=== PATIENT | male | born 1930 | race Two or more races ===

== ENCOUNTER 2019-06-11 12:26 | Emergency (ER) | payer MEDICARE, MEDICAID ==
[~2019-06-11] VITALS: Ht 152.4 cm; Wt 78.9 kg
[2019-06-11 13:00] LABS: Urine Bacteria NONE SEEN /hpf (None Seen); Urine Blood Negative /uL (Negative); Urine Specific Gravity 1.008 (1.001-1.035); Urine WBC 1 /hpf (0 - 3)
[2019-06-11 14:28] LABS: Basophils # (auto) 0.1 uL; Eosinophils # (auto) 0.1 uL; Eosinophils % (auto) 1.1 % (0.0-7.0); Hematocrit 41.8 % (41.0-53.0); Lymphocytes # (auto) 1.1 uL; Lymphocytes % (auto) 18.2 % (10.0-50.0); Mean Corpuscular Hemoglobin 32.1 pg (28.0-32.0); Mean Corpuscular Hgb Conc. 33.4 g/dL (32.0-36.0); Monocytes # (auto) 0.5 uL; Monocytes % (auto) 8.5 % (0.0-12.0); Neutrophils # (auto) 4.5 uL; Neutrophils % (auto) 71.2 % (37.0-80.0); Platelet Count (auto) 177 10^3/uL (140-450); Red Blood Cells 4.36 10^6/uL (4.5-5.90); Red Cell Distribution Width 14.4 % (11.8-14.3); White Blood Cell 6.3 10^3/uL (4.4-10.8)
[2019-06-11 14:44] LABS: Alanine Aminotransferase 22 U/L (16-61); Albumin 3.6 g/dL (3.4-5.0); Anion Gap 7 (5-15); Aspartate Aminotransferase 19 U/L (15-37); BUN/Creatinine Ratio 13.7; Blood Urea Nitrogen 14 mg/dL (7-18); Calcium 8.8 mg/dL (8.5-10.1); Carbon Dioxide 27 mmol/L (21-32); Chloride 104 mmol/L (98-107); GFR African American 89 mL/min; GFR Non-African American 74 mL/min; Glucose 90 mg/dL (74-106); Potassium 4.4 mmol/L (3.5-5.1); Sodium 138 mmol/L (136-145)
[2019-06-11 14:49] LABS: Alkaline Phosphatase 81 U/L (45-117); Bilirubin, Total 0.6 mg/dL (0.2-1.0); Total Protein 7.9 g/dL (6.4-8.2)
[2019-06-11] MEDS ORDERED: cloNIDine HCL 0.1 MG TAB PO ONE (18:30)
[2019-06-12 05:39] VITALS: BP 143/74
== END 2019-06-12 07:00 | disposition home or self-care (01) ==
LOC: ER 12:34
DX: K57.30 Diverticulosis of large intestine without perforation or abscess without bleeding (principal); K80.20 Calculus of gallbladder without cholecystitis without obstruction; E78.5 Hyperlipidemia, unspecified; I10 Essential (primary) hypertension
CPT/HCPCS: 36415; 74176; 80053; 81001; 83690; 84484; 85025

== ENCOUNTER 2019-08-22 08:20 | Inpatient (IN) | payer OTHER, MEDICAID ==
[~2019-08-22] VITALS: Ht 162.6 cm; Wt 70.4 kg
[2019-08-22 09:49] LABS: Basophils # (auto) 0.1 10 ^3/uL (0-0.2); Basophils % (auto) 1.2 % (0.0-2.0); Eosinophils # (auto) 0.1 10 ^3/uL (0-0.8); Eosinophils % (auto) 1.3 % (0.0-7.0); Hematocrit 34.1 % (41.0-53.0); Hemoglobin 11.5 g/dL (13.5-17.5); Lymphocytes # (auto) 0.9 10 ^3/uL (0.4-5.4); Lymphocytes % (auto) 19.9 % (10.0-50.0); Mean Corpuscular Hemoglobin 29.9 pg (28.0-32.0); Mean Corpuscular Hgb Conc. 33.7 g/dL (32.0-36.0); Mean Corpuscular Volume 88.7 fL (80.0-100.0); Monocytes # (auto) 0.4 10 ^3/uL (0-1.3); Monocytes % (auto) 7.9 % (0.0-12.0); Neutrophils # (auto) 3.2 10 ^3/uL (1.6-8.6); Neutrophils % (auto) 69.7 % (37.0-80.0); Platelet Count (auto) 211 10^3/uL (140-450); Red Blood Cells 3.85 10^6/uL (4.5-5.90); White Blood Cell 4.6 10^3/uL (4.4-10.8)
[2019-08-22] MEDS ORDERED: NITROGLYCERIN 0.4 MG SL TAB SL ONE (10:00)
[2019-08-22] MEDS ORDERED: ASPirin 81 mg TAB PO ONE (10:00)
[2019-08-22 14:17] LABS: Albumin 3.5 g/dL (3.4-5.0); Anion Gap 5 (5-15); Blood Urea Nitrogen 18 mg/dL (7-18); Calcium 8.6 mg/dL (8.5-10.1); Carbon Dioxide 26 mmol/L (21-32); Chloride 107 mmol/L (98-107); Glucose 108 mg/dL (74-106); Potassium 3.6 mmol/L (3.5-5.1); Sodium 138 mmol/L (136-145)
[2019-08-22 14:22] LABS: Alanine Aminotransferase 13 U/L (16-61); Alkaline Phosphatase 79 U/L (45-117); Aspartate Aminotransferase 18 U/L (15-37); BUN/Creatinine Ratio 15.8; Bilirubin, Total 0.6 mg/dL (0.2-1.0); GFR African American 78 mL/min; GFR Non-African American 65 mL/min; Total Protein 7.6 g/dL (6.4-8.2)
[2019-08-22] MEDS ORDERED: HYDROcodone-ACET 5/325MG TAB PO PRN (14:45)
[2019-08-22] MEDS ORDERED: NITROGLYCERIN 0.4 MG SL TAB SL PRN (14:45)
[2019-08-22] MEDS ORDERED: ONDANSETRON HCL 4 MG/2 ML VIAL IV PRN (14:45)
[2019-08-22] MEDS ORDERED: hydrALAZINE HCL 20 MG/ML VL IV PRN (14:45)
[2019-08-22] MEDS ORDERED: MORPHINE SULF INJ 2 MG/ML SYRINGE 1ML IV PRN ×2 (14:45)
[2019-08-22] MEDS ORDERED: ACETAMINOPHEN 500 MG TAB PO PRN (14:45)
[2019-08-22 16:48] VITALS: BP 156/94
[2019-08-22 16:50] VITALS: BP 156/94
[2019-08-22] MEDS ORDERED: LOSA-69 PO (17:11)
[2019-08-22] MEDS ORDERED: TAMS0.4C36 PO (17:11)
[2019-08-22] MEDS: TAMSULOSIN HYDROCHLORIDE 0.4 MG CAP PO SCH (18:00)
[2019-08-22 20:00] VITALS: BP 95/55
[2019-08-22] MEDS: ATORVASTATIN 20 MG TAB PO SCH (21:30)
[2019-08-22] MEDS: METOPROLOL TARTRATE 25 MG TAB PO SCH (21:37)
[2019-08-22 22:00] VITALS: BP 95/55
[2019-08-23 05:00] VITALS: BP 117/66
[2019-08-23 06:12] LABS: Basophils # (auto) 0 10 ^3/uL (0-0.2); Basophils % (auto) 0.9 % (0.0-2.0); Eosinophils # (auto) 0.3 10 ^3/uL (0-0.8); Eosinophils % (auto) 5.7 % (0.0-7.0); Hematocrit 33.8 % (41.0-53.0); Hemoglobin 11.2 g/dL (13.5-17.5); Lymphocytes % (auto) 21.8 % (10.0-50.0); Mean Corpuscular Hemoglobin 29.4 pg (28.0-32.0); Mean Corpuscular Hgb Conc. 33.2 g/dL (32.0-36.0); Mean Corpuscular Volume 88.5 fL (80.0-100.0); Monocytes # (auto) 0.5 10 ^3/uL (0-1.3); Monocytes % (auto) 11.5 % (0.0-12.0); Neutrophils # (auto) 2.7 10 ^3/uL (1.6-8.6); Neutrophils % (auto) 60.1 % (37.0-80.0); Platelet Count (auto) 198 10^3/uL (140-450); Red Blood Cells 3.82 10^6/uL (4.5-5.90); White Blood Cell 4.4 10^3/uL (4.4-10.8)
[2019-08-23 06:34] LABS: Calcium 8.4 mg/dL (8.5-10.1)
[2019-08-23 08:10] VITALS: BP 108/62
[2019-08-23 09:00] VITALS: BP 108/62
[2019-08-23] MEDS: ASPirin-EC 81 mg tab PO SCH (09:21)
[2019-08-23] MEDS: LISINOPRIL 10 MG TAB PO SCH (09:22)
[2019-08-23] MEDS: METOPROLOL TARTRATE 25 MG TAB PO SCH ×2 (09:23→21:38)
[2019-08-23] MEDS ORDERED: ACETAMINOPHEN 325 MG TAB PO PRN (11:15)
[2019-08-23 11:23] LABS: Cholesterol 183 mg/dL (< 200)
[2019-08-23 11:26] LABS: HDL Cholesterol 63 mg/dL (40-59); LDL Cholesterol 106 mg/dL (< 100); Triglycerides 102 mg/dL (< 150)
[2019-08-23 13:00] VITALS: BP 121/73
[2019-08-23 17:33] VITALS: BP 90/51
[2019-08-23] MEDS: TAMSULOSIN HYDROCHLORIDE 0.4 MG CAP PO SCH (18:21)
[2019-08-23] MEDS: ATORVASTATIN 20 MG TAB PO SCH (21:35)
[2019-08-23 22:00] VITALS: BP 100/65
[2019-08-24 05:52] VITALS: BP 140/86
[2019-08-24 08:23] LABS: Urine Bacteria FEW /hpf (None Seen); Urine Blood Negative /uL (Negative); Urine Specific Gravity 1.015 (1.001-1.035); Urine WBC 8 /hpf (0 - 3)
[2019-08-24 09:00] VITALS: BP 135/78
[2019-08-24] MEDS: ASPirin-EC 81 mg tab PO SCH (10:11)
[2019-08-24] MEDS: LISINOPRIL 10 MG TAB PO SCH (10:11)
[2019-08-24] MEDS: METOPROLOL TARTRATE 25 MG TAB PO SCH ×2 (10:12→22:12)
[2019-08-24 13:00] VITALS: BP 122/72
[2019-08-24 16:56] VITALS: BP 158/92
[2019-08-24] MEDS: TAMSULOSIN HYDROCHLORIDE 0.4 MG CAP PO SCH (18:34)
[2019-08-24 22:00] VITALS: BP 104/55
[2019-08-24] MEDS: ATORVASTATIN 20 MG TAB PO SCH (22:13)
[2019-08-25 05:00] VITALS: BP 108/63
[2019-08-25 08:00] VITALS: BP 116/71
[2019-08-25] MEDS: ASPirin-EC 81 mg tab PO SCH (10:49)
[2019-08-25] MEDS: METOPROLOL TARTRATE 25 MG TAB PO SCH ×2 (10:50→22:10)
[2019-08-25] MEDS: LISINOPRIL 10 MG TAB PO SCH (10:50)
[2019-08-25 12:00] VITALS: BP 128/81
[2019-08-25 17:00] VITALS: BP 134/67
[2019-08-25] MEDS: TAMSULOSIN HYDROCHLORIDE 0.4 MG CAP PO SCH (17:08)
[2019-08-25 21:52] VITALS: BP 126/80
[2019-08-25] MEDS: ATORVASTATIN 20 MG TAB PO SCH (22:10)
[2019-08-26 05:00] VITALS: BP 120/78
[2019-08-26 06:23] LABS: Basophils # (auto) 0.1 10 ^3/uL (0-0.2); Basophils % (auto) 1.3 % (0.0-2.0); Eosinophils # (auto) 0.3 10 ^3/uL (0-0.8); Eosinophils % (auto) 5.2 % (0.0-7.0); Hematocrit 34.5 % (41.0-53.0); Hemoglobin 11.2 g/dL (13.5-17.5); Lymphocytes # (auto) 1.1 10 ^3/uL (0.4-5.4); Lymphocytes % (auto) 21.3 % (10.0-50.0); Mean Corpuscular Hemoglobin 28.5 pg (28.0-32.0); Mean Corpuscular Hgb Conc. 32.4 g/dL (32.0-36.0); Mean Corpuscular Volume 88.1 fL (80.0-100.0); Monocytes # (auto) 0.5 10 ^3/uL (0-1.3); Neutrophils # (auto) 3.1 10 ^3/uL (1.6-8.6); Neutrophils % (auto) 62.2 % (37.0-80.0); Nucleated Red Blood Cells % 0.1 %; Platelet Count (auto) 214 10^3/uL (140-450); Red Blood Cells 3.91 10^6/uL (4.5-5.90)
[2019-08-26 06:38] LABS: Albumin 3.2 g/dL (3.4-5.0); Calcium 8.7 mg/dL (8.5-10.1); Potassium 5.3 mmol/L (3.5-5.1)
[2019-08-26 06:44] LABS: BUN/Creatinine Ratio 18.7; Bilirubin, Total 0.5 mg/dL (0.2-1.0); Total Protein 6.6 g/dL (6.4-8.2)
[2019-08-26 06:55] LABS: INR 1.13 (0.9-1.15); Partial Thromboplastin Time 29.6 sec (23.64-32.05)
[2019-08-26 08:00] VITALS: BP 130/74
[2019-08-26 09:03] VITALS: BP 130/74
[2019-08-26] MEDS: METOPROLOL TARTRATE 25 MG TAB PO SCH ×2 (10:00→21:38)
[2019-08-26] MEDS: ASPirin-EC 81 mg tab PO SCH (10:29)
[2019-08-26] MEDS: LISINOPRIL 10 MG TAB PO SCH (10:31)
[2019-08-26] MEDS ORDERED: ALPRAZolam 0.5 MG TAB PO ONE (10:45)
[2019-08-26] MEDS ORDERED: LIDOCAINE 2%HCL (LOCAL ANESTH.) INJ 20ML MDV ONE (12:22)
[2019-08-26] MEDS ORDERED: IOHEXOL 350 MG/ML 100ML IJ ONE (12:22)
[2019-08-26] MEDS ORDERED: HEPARIN IN NS 1000Units/500mL 0 ML ONE (12:22)
[2019-08-26 13:00] VITALS: BP 155/60
[2019-08-26 17:19] VITALS: BP 152/87
[2019-08-26] MEDS: TAMSULOSIN HYDROCHLORIDE 0.4 MG CAP PO SCH (18:31)
[2019-08-26 21:29] VITALS: BP 112/70
[2019-08-26] MEDS: ATORVASTATIN 20 MG TAB PO SCH (21:38)
[2019-08-27 05:28] VITALS: BP 97/64
[2019-08-27] MEDS ORDERED: ADENOSINE 59 MG in GIVE UN-DILUTED 0 ML IV STA (08:18)
[2019-08-27 08:41] VITALS: BP 140/80
[2019-08-27] MEDS: ASPirin-EC 81 mg tab PO SCH (12:17)
[2019-08-27] MEDS: METOPROLOL TARTRATE 25 MG TAB PO SCH ×2 (12:17→21:44)
[2019-08-27] MEDS: LISINOPRIL 10 MG TAB PO SCH (12:18)
[2019-08-27 12:58] VITALS: BP 105/69
[2019-08-27 17:17] VITALS: BP 119/64
[2019-08-27] MEDS: TAMSULOSIN HYDROCHLORIDE 0.4 MG CAP PO SCH (17:59)
[2019-08-27] MEDS: ATORVASTATIN 20 MG TAB PO SCH (21:43)
[2019-08-27 22:00] VITALS: BP 114/61
[2019-08-28 05:03] VITALS: BP 123/67
[2019-08-28 09:00] VITALS: BP 116/70
[2019-08-28] MEDS: ASPirin-EC 81 mg tab PO SCH (09:53)
[2019-08-28] MEDS: METOPROLOL TARTRATE 25 MG TAB PO SCH (09:53)
[2019-08-28] MEDS: LISINOPRIL 10 MG TAB PO SCH (09:54)
[2019-08-28 10:54] VITALS: BP 116/65
== END 2019-08-28 11:34 | disposition home or self-care (01) | DRG 313 ==
LOC: ER 08:20 → TELE 08:21 → TELE-WESTW 16:05
PROVIDERS: ADMIT Nurse Practitioner Acute Care; ATTEND Family Medicine
DX: R07.89 Other chest pain (principal); I24.9 Acute ischemic heart disease, unspecified; I25.10 Atherosclerotic heart disease of native coronary artery without angina pectoris; N18.3 Chronic kidney disease, stage 3 (moderate); I12.9 Hypertensive chronic kidney disease with stage 1 through stage 4 chronic kidney disease, or unspecified chronic kidney disease; N40.0 Benign prostatic hyperplasia without lower urinary tract symptoms; D64.9 Anemia, unspecified; F41.9 Anxiety disorder, unspecified; E78.5 Hyperlipidemia, unspecified; E87.5 Hyperkalemia; E78.00 Pure hypercholesterolemia, unspecified; Z90.49 Acquired absence of other specified parts of digestive tract
CPT/HCPCS: 36415; 71046; 78452; 80048; 80053; 80061; 81001; 83735; 83880; 84484; 85025; 85610; 85730; 86141; 93005; 93017; G0378; J0153; J2405

== ENCOUNTER 2019-09-05 07:08 | Inpatient (IN) | payer OTHER, MEDICAID ==
[~2019-09-05] VITALS: Ht 154.9 cm; Wt 71.2 kg
[~2019-09-05 07:08] MED LIST: LOSA-69 PO; TAMS0.4C36 PO
[2019-09-05 07:57] LABS: Basophils # (auto) 0.1 10 ^3/uL (0-0.2); Basophils % (auto) 1.4 % (0.0-2.0); Eosinophils # (auto) 0.1 10 ^3/uL (0-0.8); Eosinophils % (auto) 1.3 % (0.0-7.0); Hematocrit 35.7 % (41.0-53.0); Hemoglobin 11.8 g/dL (13.5-17.5); Lymphocytes % (auto) 19.7 % (10.0-50.0); Mean Corpuscular Hemoglobin 28.4 pg (28.0-32.0); Mean Corpuscular Volume 86.2 fL (80.0-100.0); Monocytes # (auto) 0.4 10 ^3/uL (0-1.3); Monocytes % (auto) 8.9 % (0.0-12.0); Neutrophils # (auto) 3.3 10 ^3/uL (1.6-8.6); Neutrophils % (auto) 68.7 % (37.0-80.0); Nucleated Red Blood Cells % 0.1 %; Platelet Count (auto) 212 10^3/uL (140-450); Red Blood Cells 4.13 10^6/uL (4.5-5.90); Red Cell Distribution Width 14.4 % (11.8-14.3); White Blood Cell 4.8 10^3/uL (4.4-10.8)
[2019-09-05 08:12] LABS: Albumin 3.6 g/dL (3.4-5.0); Anion Gap 7 (5-15); Blood Urea Nitrogen 24 mg/dL (7-18); Calcium 8.2 mg/dL (8.5-10.1); Carbon Dioxide 25 mmol/L (21-32); Chloride 108 mmol/L (98-107); Glucose 116 mg/dL (74-106); Magnesium 2.1 mg/dL (1.6-2.6); Potassium 3.6 mmol/L (3.5-5.1); Sodium 140 mmol/L (136-145)
[2019-09-05] MEDS ORDERED: ZINC SULFATE 220mg CAP or TAB PO ONE (08:15)
[2019-09-05] MEDS ORDERED: ASCORBIC ACID 500 MG TAB PO ONE (08:15)
[2019-09-05 08:18] LABS: Alanine Aminotransferase 16 U/L (16-61); Alkaline Phosphatase 81 U/L (45-117); Aspartate Aminotransferase 13 U/L (15-37); BUN/Creatinine Ratio 19.5; Bilirubin, Total 0.6 mg/dL (0.2-1.0); GFR African American 72 mL/min; GFR Non-African American 59 mL/min; Total Protein 7.6 g/dL (6.4-8.2)
[2019-09-05] MEDS ORDERED: cefTRIAXone 1GM/50ML D5W 50 ML IV ONE (09:15)
[2019-09-05] MEDS ORDERED: AZITHROMYCIN 500MG/ 250ML 250 ML IV ONE (09:15)
[2019-09-05] MEDS ORDERED: ENALAPRILAT 1.25 MG/ML-1ML VIAL IV ONE (10:30)
[2019-09-05] MEDS ORDERED: MORPHINE SULF INJ 2 MG/ML SYRINGE 1ML IV PRN (11:00)
[2019-09-05] MEDS ORDERED: NITROGLYCERIN 0.4 MG SL TAB SL PRN (11:00)
[2019-09-05] MEDS ORDERED: LACTULOSE 20Gm/30ML SOLN PO PRN (11:15)
[2019-09-05] MEDS ORDERED: LABETALOL HCL 5 MG/ML ML 20ML VIAL IV PRN (11:15)
[2019-09-05] MEDS ORDERED: traMADol HCL 50 MG TAB PO PRN (11:15)
[2019-09-05] MEDS ORDERED: ONDANSETRON HCL 4 MG/2 ML VIAL IV PRN (11:15)
[2019-09-05] MEDS ORDERED: ALBUTEROL SULF 2.5 MG/0.5ML(0.5%) NEB SOLN NEB PRN (11:15)
[2019-09-05] MEDS ORDERED: ACETAMINOPHEN 500 MG TAB PO PRN (11:15)
[2019-09-05 11:25] LABS: Urine Bacteria FEW /hpf (None Seen); Urine Blood Negative /uL (Negative); Urine Mucus FEW (None Seen); Urine Specific Gravity 1.019 (1.001-1.035); Urine WBC 5 /hpf (0 - 3)
[2019-09-05 12:00] VITALS: BP 152/81
--- NOTE | 2019-09-05 12:00 | NUR ---
[facility] after SBAR received. Patient oriented to ALESHA CLAYTON RN primary RN, unit, room, bed, and unit policies regarding patient care and visiting hours. Patient now on continuous telemetry monitoring, tele box # 12 and telemetry reading on arrival to unit is []. Patient placed on bedside oxygen, weighed by bedscale and encouraged to call if they need something. All questions and concerns addressed, patient verbalized understanding. Addendum: 09/05/19 at 1301 by ALESHA CLAYTON RN RN ERROR IN CHARTING. [facility] admitted to Telemetry unit after SBAR received. Patient oriented to ALESHA CLAYTON RN primary RN, unit, room, bed, and unit policies regarding patient care and visiting hours. Patient now on continuous telemetry monitoring, tele box # 13 and telemetry reading on arrival to unit is SR. Patient weighed by bed scale and encouraged to call if they need something. All questions and concerns addressed, patient verbalized understanding. Bed in lowest and locked position with side rails up x2 and call light within reach.
[2019-09-05 12:03] VITALS: BP 174/90
[2019-09-05] MEDS: ALBUTEROL SULF HFA 90MCG INH 200DOSE IN SCH ×2 (14:00→22:17)
--- NOTE | 2019-09-05 14:00 | NUR ---
PATIENT COVID-19 RESULTS NEGATIVE. HAT CONDITIONER, VINOD, NOTIFIED THAT PATIENTS COVID-19 RESULTS ARE NEGATIVE.
--- NOTE | 2019-09-05 14:10 | NUR ---
REPORT GIVEN TO RECEIVING ROWENA ROSENTHAL. RN NOTIFIED ROWENA OF PATIENT HOME MEDICATIONS AT BEDSIDE, GALO GUAMAN AWARE.
--- NOTE | 2019-09-05 14:25 | NUR ---
PATIENT TRANSFERRED TO [facility], VIA WHEEL CHAIR. ACCOMPANIED BY STAFF AND WITH ALL PERSONAL BELONGINGS. NO S/S OF SOB OR DISTRESS AT TIME OF DEPARTURE.
[2019-09-05] MEDS ORDERED: LOSARTAN POTASSIUM 50 MG TAB PO ONE (15:00)
[2019-09-05] MEDS ORDERED: ENALAPRILAT 1.25 MG/ML-1ML VIAL IV PRN (15:00)
--- NOTE | 2019-09-05 15:53 | NUR ---
BREATHING TX ADMINISTERED VIA MDI WITH SPACER, PT TOLERATED WELL, NO ADVERSE REACTIONS NOTED. EDUCATED PT ON INHALER ADMINISTRATION WITH SPACER, PT VERBALIZED AND DEMONSTRATED UNDERSTANDING. HR 84, RR 15, SPO2 97% ON 2LPM NASAL CANNULA. NO SOB NOTED. WILL CONTINUE TO MONITOR PT.
[2019-09-05] MEDS ORDERED: IOHEXOL 350 MG/ML 100ML IJ ONE (16:22)
--- NOTE | 2019-09-05 16:22 | NUR ---
IV insertion IV access obtained, via clean sterile technique by inserting 20 gauge catheter at right Forearm after 3 attempt(s). IV secured properly. No trauma to site. Patient tolerated well. Radiology notified of iv placement.
[2019-09-05 17:30] VITALS: BP 150/82
[2019-09-05] MEDS: TAMSULOSIN HYDROCHLORIDE 0.4 MG CAP PO SCH (18:50)
--- NOTE | 2019-09-05 20:00 | NUR ---
Opening Shift Note Assumed care of patient, awake and alert. No S/S of distress/SOB or pain. Instructed on POC and to call for assist PRN, will continue to monitor for changes Q1hr and PRN.
[2019-09-05 21:00] VITALS: BP 141/75
[2019-09-06 04:50] VITALS: BP 126/69
[2019-09-06] MEDS: ALBUTEROL SULF HFA 90MCG INH 200DOSE IN SCH ×3 (06:47→19:14)
[2019-09-06 08:00] VITALS: BP 125/69
[2019-09-06 09:11] VITALS: BP 125/69
[2019-09-06] MEDS: ENOXAPARIN SOD 40 MG/0.4 ML SYRINGE SC SCH (09:43)
[2019-09-06] MEDS: cefTRIAXone 1GM/50ML D5W 50 ML IV SCH (09:43)
[2019-09-06] MEDS: LOSARTAN POTASSIUM 50 MG TAB PO SCH (09:44)
[2019-09-06] MEDS: AZITHROMYCIN 500MG/ 250ML 250 ML IV SCH (10:43)
[2019-09-06 13:00] VITALS: BP 124/71
--- NOTE | 2019-09-06 15:20 | NUR ---
spoke with [facility]. patient given the option to transfer to [facility] or stay here until he is discharged. the patient chose to stay here and not transfer until discharge.
[2019-09-06 16:48] VITALS: BP 129/65
[2019-09-06] MEDS: TAMSULOSIN HYDROCHLORIDE 0.4 MG CAP PO SCH (17:38)
--- NOTE | 2019-09-06 19:15 | NUR ---
ASSUMED CARE, PT. AWAKE, NO C/O PAIN, NO SOB.
[2019-09-06 22:08] VITALS: BP 128/77
[2019-09-07 06:00] VITALS: BP 127/66
--- NOTE | 2019-09-07 07:30 | NUR ---
Opening Shift Note Assumed care of patient, awake and alert. No S/S of distress/SOB or pain. Bed is low, locked with 2x side rails up. Call light is within reach. Instructed on POC and to call for assist PRN, will continue to monitor for changes Q1hr and PRN.
[2019-09-07 08:00] VITALS: BP 132/73
[2019-09-07 09:00] VITALS: BP 132/73
[2019-09-07] MEDS: ENOXAPARIN SOD 40 MG/0.4 ML SYRINGE SC SCH (10:00)
[2019-09-07] MEDS: cefTRIAXone 1GM/50ML D5W 50 ML IV SCH (10:54)
[2019-09-07] MEDS: LOSARTAN POTASSIUM 50 MG TAB PO SCH (10:55)
--- NOTE | 2019-09-07 11:35 | NUR ---
Paged studio operation engineer social work faculty member For information regarding social service consult. Per patient he is not homeless and is going to his nephew's house. Nephews name is John Tadeo and patient stated he does not have a phone number or address but knows how to get there. He stated that the nephew was going to provide him a place to stay.
[2019-09-07] MEDS: AZITHROMYCIN 500MG/ 250ML 250 ML IV SCH (11:50)
[2019-09-07 13:00] VITALS: BP 158/84
--- NOTE | 2019-09-07 14:20 | NUR ---
Discharge instructions given as ordered. Encourage to follow up with PMD as instructed. Provided patient with Dr. Evans's information to schedule a follow up appointment. [phone] This nurse also provided patient with address. Patient verbalized understanding. All questions and concerns addressed. Patient verbalized understanding. Medication reconciliation form completed and copy given to patient. Home medications held in Pharmacy returned to patient. IV removed with catheter intact, pressure dressing applied. Telemetry unit returned to ICU. Patient taken to vehicle via wheelchair with all personal belongings, accompanied by staff. No distress noted at time of departure.
--- NOTE | 2019-09-08 09:20 | NUR ---
Weekend prison psychiatrist 09/07/19 1100 I received a page from nurse Collins letting me know that there is a social service consult because patient states he is homeless. Patient kyrgyz speaking only. I spoke with nurse Arzate who spoke with patient in Swedish-he told her that he is not homeless, that he lives with family member and has his own car in the parking lot and will drive himself home. Per nurse Arzate, patient is alert and oriented and denies need for assistance at this time.
== END 2019-09-07 14:06 | disposition home or self-care (01) | DRG 304 ==
LOC: ER 07:08 → TELE 07:09 → TELE-EAST 12:43 → TELE-WESTW 14:05
PROVIDERS: ADMIT Internal Medicine; ATTEND Internal Medicine
DX: I16.0 Hypertensive urgency (principal); J18.9 Pneumonia, unspecified organism; I10 Essential (primary) hypertension; E78.5 Hyperlipidemia, unspecified; D64.9 Anemia, unspecified; N40.0 Benign prostatic hyperplasia without lower urinary tract symptoms; R73.9 Hyperglycemia, unspecified; Z90.49 Acquired absence of other specified parts of digestive tract; Z03.818 Encounter for observation for suspected exposure to other biological agents ruled out
CPT/HCPCS: 36415; 71045; 71250; 71275; 80053; 81001; 82728; 83615; 83735; 83880; 84484; 85025; 85379; 87070; 87081; 87804; 87880; 93005; 93970; 94640; 99291; G0378; J0696

== ENCOUNTER 2019-09-09 05:30 | Emergency (ER) | payer OTHER, MEDICAID ==
[~2019-09-09] VITALS: Ht 165.1 cm; Wt 66.7 kg
[2019-09-09 06:27] LABS: Urine Bacteria NONE SEEN /hpf (None Seen); Urine Blood Negative /uL (Negative); Urine Mucus FEW (None Seen); Urine Specific Gravity 1.021 (1.001-1.035); Urine WBC 1 /hpf (0 - 3)
[2019-09-09 06:32] LABS: Basophils # (auto) 0.1 10 ^3/uL (0-0.2); Basophils % (auto) 1.2 % (0.0-2.0); Eosinophils # (auto) 0.1 10 ^3/uL (0-0.8); Eosinophils % (auto) 2.8 % (0.0-7.0); Hematocrit 37.9 % (41.0-53.0); Hemoglobin 12.6 g/dL (13.5-17.5); Lymphocytes % (auto) 19.5 % (10.0-50.0); Mean Corpuscular Hemoglobin 28.6 pg (28.0-32.0); Mean Corpuscular Hgb Conc. 33.2 g/dL (32.0-36.0); Mean Corpuscular Volume 86.1 fL (80.0-100.0); Monocytes # (auto) 0.5 10 ^3/uL (0-1.3); Monocytes % (auto) 9.5 % (0.0-12.0); Neutrophils # (auto) 3.4 10 ^3/uL (1.6-8.6); Nucleated Red Blood Cells % 0.2 %; Platelet Count (auto) 197 10^3/uL (140-450); Red Blood Cells 4.41 10^6/uL (4.5-5.90); Red Cell Distribution Width 14.3 % (11.8-14.3)
[2019-09-09 06:43] LABS: INR 1.11 (0.9-1.15); Partial Thromboplastin Time 29.2 sec (23.64-32.05)
[2019-09-09 06:46] LABS: Albumin 3.9 g/dL (3.4-5.0); Anion Gap 7 (5-15); Blood Urea Nitrogen 23 mg/dL (7-18); Calcium 8.8 mg/dL (8.5-10.1); Carbon Dioxide 26 mmol/L (21-32); Chloride 106 mmol/L (98-107); Glucose 110 mg/dL (74-106); Magnesium 2.4 mg/dL (1.6-2.6); Potassium 3.9 mmol/L (3.5-5.1); Sodium 139 mmol/L (136-145)
[2019-09-09] MEDS ORDERED: SODIUM CHLORIDE 0.9% 1,000 ML IV ONE (06:51)
[2019-09-09 06:52] LABS: Alanine Aminotransferase 17 U/L (16-61); Alkaline Phosphatase 85 U/L (45-117); Aspartate Aminotransferase 16 U/L (15-37); Bilirubin, Total 0.7 mg/dL (0.2-1.0); GFR African American 73 mL/min; GFR Non-African American 60 mL/min
[2019-09-09] MEDS ORDERED: MECLIZINE HCL 25 MG TAB PO ONE (07:00)
[2019-09-09 09:21] VITALS: BP 142/76
== END 2019-09-09 09:31 | disposition home or self-care (01) ==
LOC: ER 05:30
DX: R10.84 Generalized abdominal pain (principal); R11.0 Nausea; I10 Essential (primary) hypertension; E78.5 Hyperlipidemia, unspecified; Z90.49 Acquired absence of other specified parts of digestive tract; Z79.899 Other long term (current) drug therapy
CPT/HCPCS: 36415; 70450; 71045; 80053; 81001; 83735; 83880; 84484; 85025; 85610; 85730; 93005; 99285; J7030; J8597